=== PATIENT | female | born 1970 ===

== ENCOUNTER 2017-05-18 10:46 | Emergency (ER) | payer OTHER ==
[2017-05-18 10:46] VITALS: BMI 24.1
[2017-05-18 11:01] VITALS: RESP 16; TEMP 97.6
[2017-05-18] MEDS ORDERED: Sodium Chloride 0.9% 1,000 ML IV ONE (11:31)
--- NOTE | 2017-05-18 11:41 | C.PDOC ---
History Of Present Illness 47 y/o female presents to the ER complaining of generalized body aches and chest pain increase with movement which have been present for the past 2 weeks. Patient states that the chest pain became worse today. Patient denies any other complaints at this time. Time Seen by Provider: 05/18/17 11:15 Chief Complaint (Nursing): Chest Pain History Per: Patient History/Exam Limitations: no limitations Onset/Duration Of Symptoms: Days Current Symptoms Are (Timing): Still Present Severity: Moderate Quality: Aching Associated Symptoms: denies: Dyspnea Recent travel outside of the [place]: No Past Medical History Reviewed: Historical Data, Nursing Documentation, Vital Signs Vital Signs: Last Vital Signs Temp 97.6 F 05/18/17 10:51 Pulse 84 05/18/17 14:04 Resp 16 05/18/17 14:04 BP 132/84 05/18/17 14:04 Pulse Ox 98 05/18/17 14:04 - Medical History PMH: Gastritis, Hypothyroidism Denies: Chronic Kidney Disease Other Surgeries: Hx of surgeries Family History: States: No Known Family Hx - Social History Hx Alcohol Use: No Hx Substance Use: No - Immunization History Hx Tetanus Toxoid Vaccination: No Hx Influenza Vaccination: No Hx Pneumococcal Vaccination: No Review Of Systems Except As Marked, All Systems Reviewed And Found Negative. Constitutional: Positive for: Malaise. Negative for: Fever, Chills Cardiovascular: Positive for: Chest Pain (with movement) Respiratory: Positive for: Cough Musculoskeletal: Positive for: Shoulder Pain, Arm Pain, Leg Pain Physical Exam - Physical Exam Appears: Non-toxic, No Acute Distress Skin: Normal Color, Warm Head: Atraumatic, Normacephalic Eye(s): bilateral: Normal Inspection Nose: Normal Oral Mucosa: Moist Neck: Supple Chest: Symmetrical, Tenderness (reproducible anterior chest wall tenderness) Cardiovascular: Rhythm Regular Respiratory: Normal Breath Sounds, No Accessory Muscle Use, No Rales, No Rhonchi , No Wheezing Back: Normal Inspection Extremity: Normal ROM Neurological/Psych: Oriented x3, Normal Speech, Normal Motor, Normal Sensation ED Course And Treatment - Laboratory Results Result Diagrams: 05/18/17 12:04 05/18/17 12:04 Lab Interpretation: No Acute Changes ECG: Interpreted By In ECG Rhythm: Sinus Bradycardia ECG Interpretation: No Acute Changes O2 Sat by Pulse Oximetry: 100 (RA) Pulse Ox Interpretation: Normal - Radiology CXR: Interpreted by Me CXR Interpretation: Yes: No Acute Disease Progress Note: Treated with toradol 30 mg IV and IVF NSS. On re-evaluation lungs clear feeling better in no distress Reassessment Condition: Improved Medical Decision Making Medical Decision Making: Plan: --Labs --UA --CXR --IV Fluids --Toradol IV Disposition Counseled Patient/Family Regarding: Studies Performed, Diagnosis, Need For Followup, Rx Given - Disposition Referrals: [facility] [Outside] [facility] [Outside] Disposition: HOME/ ROUTINE Disposition Time: 14:00 Condition: STABLE Additional Instructions: Follow up with your PMD or clinic for further evaluation Prescriptions: Naproxen [Naprosyn] 1 tab PO BID PRN #25 tab PRN Reason: Pain Instructions: Costochondritis Forms: [employer] (Mohawk) Print Language: KYRGYZ - POA Present On Arrival: None - Clinical Impression Clinical Impression: Costochondral chest pain, Body aches - 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 - Scribe Statement The provider has reviewed the documentation as recorded by the Felicity Caldwell Provider Attestation All medical record entries made by the Troyibolya were at my direction and personally dictated by me. I have reviewed the chart and agree that the record accurately reflects my personal performance of the history, physical exam, medical decision making, and the department course for this patient. I have also personally directed, reviewed, and agree with the discharge instructions and disposition.
[2017-05-18 12:15] LABS: BASO % 0.2 % (0.0-2.0); EOS # 0.1 K/uL (0.0-0.7); EOS % 1.6 % (0.0-4.0); HEMOGLOBIN 13.2 g/dL (11.0-16.0); LYMPH # 2.1 K/uL (1.0-4.3); LYMPH % 36.6 % (20.0-40.0); MEAN CELL VOLUME 96.5 fL (81.0-99.0); MEAN CORPUSCULAR HEMOGLOBIN 33.5 pg (27.0-31.0); MEAN CORPUSCULAR HGB CONC 34.7 g/dL (33.0-37.0); MEAN PLATELET VOLUME 8.8 fL (7.2-11.7); MONO # 0.2 K/uL (0.0-0.8); MONO % 3.6 % (0.0-10.0); NEUT # 3.3 K/uL (1.8-7.0); RBC 3.94 Mil/uL (3.80-5.20); RED CELL DISTRIBUTION WIDTH 12.7 % (11.5-14.5); WHITE BLOOD COUNT 5.7 K/uL (4.8-10.8)
[2017-05-18 12:16] LABS: HCG,QUALITATIVE URINE NEGATIVE (NEGATIVE)
[2017-05-18 12:23] LABS: ALBUMIN 4.2 g/dL (3.5-5.0); ALT/SGPT 42 U/L (9-52); AST/SGOT 34 U/L (14-36); BLOOD UREA NITROGEN 22 mg/dL (7-17); CALCIUM 9.4 mg/dl (8.6-10.4); GFR AFRICAN-AMERICAN > 60; GFR NON-AFRICAN AMERICAN > 60
[2017-05-18 12:24] LABS: SQUAMOUS EPITHIAL 1 /hpf (0-5); URINE BILIRUBIN NEGATIVE (NEGATIVE); URINE BLOOD 1+ (NEGATIVE); URINE CLARITY Clear (Clear); URINE COLOR Yellow (YELLOW); URINE GLUCOSE (UA) NORMAL (Normal); URINE LEUKOCYTE ESTERASE 1+ Leu/uL (Negative); URINE NITRATE NEGATIVE (NEGATIVE); URINE PROTEIN NEGATIVE (NEGATIVE); URINE UROBILINOGEN NORMAL mg/dL (0.2-1.0)
[2017-05-18 12:42] LABS: CK-MB < 0.22 ng/mL (0.0-3.38)
--- NOTE | 2017-05-18 13:14 | RAD ---
HISTORY: SOB COMPARISON: Chest x-ray performed 10/12/14 TECHNIQUE: Chest PA and lateral FINDINGS: LUNGS: Patchy opacity in the left upper lobe, possibly scarring and granulomas. No focal consolidation. Please note that chest x-ray has limited sensitivity for the detection of pulmonary masses. PLEURA: No significant pleural effusion identified. No definite pneumothorax . CARDIOVASCULAR: The cardiomediastinal silhouette appears within normal limits of size. OSSEOUS STRUCTURES: No acute osseous abnormality identified. VISUALIZED UPPER ABDOMEN: Unremarkable. OTHER FINDINGS: None. IMPRESSION: Re-identified patchy opacities in the left upper lobe, possibly scarring and granulomas.
[2017-05-18 14:04] VITALS: BP 132/84; PULSE 84
[2017-05-18 17:15] VITALS: O2SAT 100
--- NOTE | 2017-05-19 19:05 | CARD ---
APPROVED REPORT EKG Measurement Heart [id number] <Conclusion> Sinus bradycardia Otherwise normal ECG
== END 2017-05-18 14:04 | disposition home or self-care (01) ==
LOC: C.ER 10:46
DX: R07.1 Chest pain on breathing (principal); R52 Pain, unspecified; E03.9 Hypothyroidism, unspecified
CPT/HCPCS: 71046; 80053; 81001; 82553; 84484; 84703; 85025; 93005; 96361; 96374; 99284; J1885; J7040

== ENCOUNTER 2017-06-30 19:51 | Emergency (ER) | payer OTHER ==
[2017-06-30 19:51] VITALS: BMI 24.1
[2017-06-30 20:16] VITALS: RESP 14; O2SAT 99
--- NOTE | 2017-06-30 20:49 | C.PDOC ---
History Of Present Illness 47 y/o female presents to the ED complaining of 4 day history of right ear pain , with pressure sensation near the right eye and nose. Denies associated nasal congestion, headache, ear drainage, visual changes, fever, or URI symptoms. Patient denies taking any medications prior to arrival. Time Seen by Provider: 06/30/17 20:17 Chief Complaint (Nursing): ENT Problem History Per: Patient History/Exam Limitations: None Onset/Duration Of Symptoms: Days (x4) Current Symptoms Are (Timing): Still Present Past Medical History Reviewed: Historical Data, Nursing Documentation, Vital Signs Vital Signs: Last Vital Signs Temp 98 F 06/30/17 21:10 Pulse 70 06/30/17 21:10 Resp 14 06/30/17 21:10 BP 98/64 L 06/30/17 21:10 Pulse Ox 99 06/30/17 21:28 - Medical History PMH: Gastritis, Hyperthyroidism, Hypothyroidism Denies: Chronic Kidney Disease Other Surgeries: cataract surgery Family History: States: Unknown Family Hx - Social History Hx Tobacco Use: No Hx Alcohol Use: No Hx Substance Use: No - Immunization History Hx Tetanus Toxoid Vaccination: No Hx Influenza Vaccination: No Hx Pneumococcal Vaccination: No Review Of Systems Constitutional: Negative for: Fever, Chills Eyes: Positive for: Pain (pressure sensation). Negative for: Vision Change ENT: Positive for: Ear Pain, Nose Pain (pressure sensation). Negative for: Ear Discharge, Nose Congestion, Throat Pain Respiratory: Negative for: Cough, Shortness of Breath Neurological: Negative for: Headache Physical Exam - Physical Exam Appears: Non-toxic, No Acute Distress Skin: Warm, Dry, No Rash Head: Atraumatic, Normacephalic, Other (Tenderness over the right frontal sinus) Eye(s): bilateral: Normal Inspection, PERRL, EOMI Ear(s): Bilateral: Normal (with no erythema) Nose: No Discharge, Other (Right nostril with enlarged turbinate) Throat: Normal, No Erythema, No Exudate Neck: Normal ROM, Supple Chest: Symmetrical Cardiovascular: Rhythm Regular Respiratory: Normal Breath Sounds, No Rales, No Rhonchi, No Wheezing Neurological/Psych: Oriented x3 ED Course And Treatment O2 Sat by Pulse Oximetry: 99 (RA) Pulse Ox Interpretation: Normal Progress Note: Patient treated with Motrin PO in the ED. Counseled patient regarding diagnosis and plan. Patient will be discharged home with Zyrtec, Motrin, and Nasonex prescriptions. Disposition Counseled Patient/Family Regarding: Diagnosis, Need For Followup - Disposition Referrals: [facility] [Outside] Disposition: HOME/ ROUTINE Disposition Time: 20:46 Condition: STABLE Additional Instructions: Please follow up with pMD Take meds as directed Return to ER if worse Prescriptions: Cetirizine HCl [Zyrtec] 10 mg PO DAILY #20 capsule Ibuprofen [Motrin] 600 mg PO Q6H #20 tab Mometasone Furoate [Nasonex] 2 spray NS DAILY #1 bottle Instructions: Sinusitis, Adult (DC) Forms: [employer] (Slovak) Print Language: SAMI - POA Present On Arrival: None - Clinical Impression Clinical Impression: Sinusitis - 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 - Scribe Statement The provider has reviewed the documentation as recorded by the Scribe (Lauren Sam) All medical record entries made by the Scribe were at my direction and personally dictated by me. I have reviewed the chart and agree that the record accurately reflects my personal performance of the history, physical exam, medical decision making, and the department course for this patient. I have also personally directed, reviewed, and agree with the discharge instructions and disposition.
[2017-06-30 21:12] VITALS: BP 98/64; PULSE 70; TEMP 98
== END 2017-06-30 21:11 | disposition home or self-care (01) ==
LOC: C.ER 19:51
DX: J32.9 Chronic sinusitis, unspecified (principal)

== ENCOUNTER 2018-07-26 08:29 | Outpatient (CLI) | payer OTHER | END 2018-07-26 08:30 | disposition home or self-care (01) | LOC: C.LAB 08:29 | DX: E03.9 Hypothyroidism, unspecified (principal) ==

== ENCOUNTER 2018-08-01 13:57 | Outpatient (CLI) | payer OTHER | END 2018-08-01 13:58 | disposition home or self-care (01) | LOC: C.USIC 13:57 | DX: E03.9 Hypothyroidism, unspecified (principal) ==